=== PATIENT | female | born 1970 | race Caucasian/White ===

== ENCOUNTER 2020-10-25 09:55 | Emergency (ER) | payer OTHER ==
[~2020-10-25] VITALS: Ht 154.9 cm; Wt 68.8 kg
--- NOTE | 2020-10-25 10:47 | NUR ---
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
--- NOTE | 2020-10-25 11:07 | NUR ---
ASSUMED CARE OF PT, SHE IS HERE FOR NECK AND LBP. SHE REPORTS WED JET SKIING AND HITTING SOME WAVES THAT RESULTED IN THE PAIN. SHE REPORTS SOME N/T IN LEFT SHOULDER ONLY. PAIN IS 10/10, HTN BUT OTHER VS WNL. NADN, CALL LIGHT W/IN REACH.
[2020-10-25] MEDS ORDERED: OXYcodone/APAP 10/325MG TABLET PO ONE (11:30)
[2020-10-25] MEDS ORDERED: OXYcodone/APAP 10/325MG TABLET ONE (11:38)
--- NOTE | 2020-10-25 11:39 | NUR ---
PT TO RADIOLOGY. PT DIRECTED TO HER ROOM.
--- NOTE | 2020-10-25 11:57 | NUR ---
PT MEDICATED PER KATHIA LANDRY. CALL LIGHT W/ IN REACH.
--- NOTE | 2020-10-25 12:54 | NUR ---
PT SITTING IN [place], BEDSIDE. VSS, KATHIA. PAIN IMPROVED. CALL LIGHT W/IN REACH.
--- NOTE | 2020-10-25 13:55 | NUR ---
RECEIVED UPDATE FROM THU RN. PT RESTING IN [facility], [place]. CALL LIGHT W/IN REACH.
[2020-10-25 14:49] VITALS: BP 149/95
--- NOTE | 2020-10-25 15:47 | NUR ---
Patient given discharge instructions and they have confirmed that they understand the instructions. Patient ambulatory with steady gait.
== END 2020-10-25 16:03 | disposition home or self-care (01) ==
LOC: ED 14:30
DX: S16.1XXA Strain of muscle, fascia and tendon at neck level, initial encounter (principal); S39.012A Strain of muscle, fascia and tendon of lower back, initial encounter; S29.012A Strain of muscle and tendon of back wall of thorax, initial encounter; M51.34 Other intervertebral disc degeneration, thoracic region; M51.36 Other intervertebral disc degeneration, lumbar region; Z88.5 Allergy status to narcotic agent; X58.XXXA Exposure to other specified factors, initial encounter; Y93.89 Activity, other specified; Y92.89 Other specified places as the place of occurrence of the external cause; Y99.8 Other external cause status
CPT/HCPCS: 72040; 72050; 72072; 72110; 99284; 99285

== ENCOUNTER 2020-12-19 07:51 | Outpatient (CLI) | payer OTHER ==
[2020-12-19] MEDS ORDERED: LIDOCAINE 1%, 20ML ONE (08:00)
[2020-12-19] MEDS ORDERED: SODIUM BICARBONATE 4.2%, 5ML ONE (08:00)
[2020-12-19] MEDS ORDERED: LIDOCAINE 1%-EPI 1:100K, 20ML ONE (08:00)
[2020-12-25 10:20] VITALS: BP 124/84
[2020-12-25] MEDS ORDERED: CHLORHEXIDINE 15 ML UDC PO ONE (10:30)
[2020-12-25] MEDS ORDERED: LACTATED RINGERS 1,000 ML IV SCH (10:30)
== END 2020-12-19 23:59 | disposition home or self-care (01) ==
LOC: CFH 07:51
PROVIDERS: ATTEND Surgery
DX: N63.25 Unspecified lump in the left breast, overlapping quadrants (principal); C50.812 Malignant neoplasm of overlapping sites of left female breast; Z17.1 Estrogen receptor negative status [ER-]; Z79.891 Long term (current) use of opiate analgesic; Z79.899 Other long term (current) drug therapy; Z87.891 Personal history of nicotine dependence; Z88.5 Allergy status to narcotic agent
CPT/HCPCS: 19285; 77065; J3490

== ENCOUNTER 2020-12-25 09:06 | Day surgery (SDC) | payer OTHER ==
[~2020-12-25] VITALS: Ht 162.6 cm; Wt 66.7 kg
[2020-12-25 10:20] VITALS: BP 124/84
[2020-12-25] MEDS ORDERED: MULT-658 PO (10:20)
[2020-12-25] MEDS ORDERED: [UNRECOGNIZED DRUG - OTHER] (10:20)
[2020-12-25] MEDS ORDERED: CYCL10TA2 PO (10:20)
[2020-12-25] MEDS ORDERED: OXYC-306 PO (10:20)
[2020-12-25] MEDS ORDERED: CHOL10003 PO (10:20)
[2020-12-25] MEDS ORDERED: OMEG1CAP23 PO (10:20)
[2020-12-25] MEDS ORDERED: CHLORHEXIDINE 15 ML UDC ONE (10:30)
[2020-12-25] MEDS ORDERED: MIDAZOLAM 1 MG/ML, 2ML ONE (11:25)
[2020-12-25] MEDS ORDERED: FENTANYL PF 250 MCG/5ML ONE (11:25)
[2020-12-25] MEDS ORDERED: ISOSULFAN BLUE 10 MG/ML, 5ML IV ONE (11:47)
[2020-12-25] MEDS ORDERED: HEPARIN 1,000 UNITS/ML, 10ML ONE ×2 (11:47→14:25)
[2020-12-25] MEDS ORDERED: EPINEPHRINE 1 MG/ML, 1ML ONE ×2 (11:47→14:25)
[2020-12-25] MEDS ORDERED: BUPIVACAINE/PF 0.5% ONE ×3 (11:47→14:25)
[2020-12-25] MEDS ORDERED: MEPERIDINE/PF 25MG/0.5ML IVPush PRN (12:30)
[2020-12-25] MEDS ORDERED: LORazepam 2 MG/ML, 1ML IVPush PRN (12:30)
[2020-12-25] MEDS ORDERED: ONDANSETRON 2MG/ML, 2ML IVPush PRN (12:30)
[2020-12-25] MEDS ORDERED: METHOCARBAMOL 1,000 MG in DEXTROSE 5% 100 ML IV PRN (12:30)
[2020-12-25] MEDS ORDERED: PROMETHAZINE 25 MG/ML, 1ML IVPush PRN (12:30)
[2020-12-25] MEDS ORDERED: LABETALOL 5MG/ML, 20ML IV PRN (12:30)
[2020-12-25] MEDS ORDERED: hydrALAzine 20 MG/ML, 1ML IV PRN (12:30)
[2020-12-25] MEDS ORDERED: EPHEDRINE 50 MG/ML, 1ML IVPush PRN (12:30)
[2020-12-25] MEDS ORDERED: ACETAMINOPHEN 325 MG TABLET PO PRN (12:30)
[2020-12-25] MEDS ORDERED: OXYcodone 5 MG/5 ML ORAL.SOL UDC PO PRN (12:30)
[2020-12-25] MEDS ORDERED: HYDROmorphone 1 MG/ML, 1ML INJ IVPush PRN (12:30)
[2020-12-25] MEDS ORDERED: PROPOFOL 50 ML ONE (12:43)
[2020-12-25] MEDS ORDERED: ONDA4TAB7 PO (14:35)
[2020-12-25] MEDS ORDERED: FENTANYL PF 100 MCG/2ML ONE (14:48)
[2020-12-25] MEDS ORDERED: OXYcodone 5 MG/5 ML ORAL.SOL UDC ONE (14:48)
[2020-12-25] MEDS ORDERED: ACETAMINOPHEN 650 MG/20.3 ML UDC ONE (14:48)
[2020-12-25] MEDS: FENTANYL PF 100 MCG/2ML IV PRN ×3 (14:50→15:15)
== END 2020-12-25 16:45 | disposition home or self-care (01) ==
LOC: OR 09:06 → EDSTATUS 09:30 → OUT 16:45
PROVIDERS: ATTEND Surgery
DX: C50.812 Malignant neoplasm of overlapping sites of left female breast (principal); Z17.1 Estrogen receptor negative status [ER-]; Z79.891 Long term (current) use of opiate analgesic; Z79.899 Other long term (current) drug therapy; Z87.891 Personal history of nicotine dependence; Z88.5 Allergy status to narcotic agent; Z80.3 Family history of malignant neoplasm of breast
CPT/HCPCS: 19125; 36561; 38525; 38792; 71045; 77001; 88307; 88329; 88333; A9541; C1769; C1788; J0171; J1644; J2250; J2704; J3010; J7120

== ENCOUNTER 2021-01-09 07:12 | Outpatient (CLI) | payer OTHER ==
[~2021-01-09 07:12] MED LIST: CHOL10003 PO; CYCL10TA2 PO; MULT-658 PO; OMEG1CAP23 PO; ONDA4TAB7 PO; OXYC-306 PO; [UNRECOGNIZED DRUG - OTHER]
== END 2021-01-09 23:59 | disposition home or self-care (01) ==
LOC: CVU 07:12
PROVIDERS: ATTEND Internal Medicine Hematology & Oncology
DX: C50.412 Malignant neoplasm of upper-outer quadrant of left female breast (principal); I34.0 Nonrheumatic mitral (valve) insufficiency
CPT/HCPCS: 93306; 93356

== ENCOUNTER → 2021-01-21 | Outpatient (CLI) | payer OTHER | END | disposition home or self-care (01) | LOC: ROC 08:55 | PROVIDERS: ATTEND Radiology Radiation Oncology | DX: C50.412 Malignant neoplasm of upper-outer quadrant of left female breast (principal); Z17.1 Estrogen receptor negative status [ER-]; Z79.891 Long term (current) use of opiate analgesic; Z79.899 Other long term (current) drug therapy; Z87.891 Personal history of nicotine dependence | CPT/HCPCS: 99214; G0463 ==